=== PATIENT | female | born 1975 | race African-American/Black ===

== ENCOUNTER 2017-06-23 10:06 | Emergency (ER) | payer OTHER ==
[2017-06-23] MEDS ORDERED: Acetaminophen 500 MG TAB ONE (10:34)
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
== END 2017-06-23 11:30 | disposition home or self-care (01) ==
LOC: ERS 10:06
DX: S60.221A Contusion of right hand, initial encounter (principal); I10 Essential (primary) hypertension; Z79.899 Other long term (current) drug therapy; V43.52XA Car driver injured in collision with other type car in traffic accident, initial encounter

== ENCOUNTER 2017-07-08 05:19 | Emergency (ER) | payer OTHER | END 2017-07-08 06:30 | disposition home or self-care (01) | LOC: ERS 05:19 | DX: J11.1 Influenza due to unidentified influenza virus with other respiratory manifestations (principal); I10 Essential (primary) hypertension; Z79.899 Other long term (current) drug therapy | CPT/HCPCS: 99283 ==

== ENCOUNTER 2018-08-05 21:50 | Emergency (ER) | payer OTHER ==
[2018-08-05] MEDS ORDERED: Ketorolac Tromethamine 30 MG/ML VIAL ONE (22:24)
== END 2018-08-05 23:17 | disposition home or self-care (01) ==
LOC: ERS 21:50
DX: S39.012A Strain of muscle, fascia and tendon of lower back, initial encounter (principal); I10 Essential (primary) hypertension; E78.5 Hyperlipidemia, unspecified; Z79.899 Other long term (current) drug therapy; X58.XXXA Exposure to other specified factors, initial encounter
CPT/HCPCS: 96372; J1885

== ENCOUNTER 2018-09-15 12:56 | Emergency (ER) | payer OTHER ==
[2018-09-15] MEDS ORDERED: Acetaminophen 500 MG TAB ONE (13:41)
== END 2018-09-15 13:56 | disposition home or self-care (01) ==
LOC: ERS 12:56
DX: M25.551 Pain in right hip (principal); M54.5 Low back pain; I10 Essential (primary) hypertension; Z79.899 Other long term (current) drug therapy
CPT/HCPCS: 99283

== ENCOUNTER 2019-05-05 17:44 | Emergency (ER) | payer OTHER | END 2019-05-05 19:25 | disposition left against medical advice (07) | LOC: ERS 17:44 | DX: Z53.21 Procedure and treatment not carried out due to patient leaving prior to being seen by health care provider (principal) ==